=== PATIENT | female | born 1970 | race Caucasian/White ===

== ENCOUNTER → 2023-11-02 | Outpatient (CLI) | payer OTHER ==
--- NOTE | 2023-11-04 14:52 | MM ---
Reason for Exam: Screening (asymptomatic). Last mammogram was performed 1 year(s) and 5 month(s) ago. Patient History: Menarche at age 10. First Full-Term at age 26. Postmenopausal. Risk Values: Julieta 5 year model risk: 1.3%. NCI Lifetime model risk: 9.1%. Prior Study Comparison: 03/13/2020 Bilateral Screening Mammogram, [facility]. 06/18/2022 Bilateral Screening Mammogram, [facility]. Tissue Density: The breasts are heterogeneously dense, which may obscure small masses. Findings: Analyzed By CAD. There is no suspicious group of microcalcifications or new suspicious mass in either breast. Overall Assessment: Benign, BI-RAD 2 Management: Screening Mammogram of both breasts in 1 year. . Patient should continue monthly self-breast exams. A clinical breast exam by your physician is recommended on an annual basis. This exam should not preclude additional follow-up of suspicious palpable abnormalities. Note on Julieta scores and lifetime risk: 1. A Julieta score greater than 3% is considered moderate risk. If this is the case, consider specialist referral to assess eligibility for a risk reducing agent. 2. If overall lifetime risk for the development of breast cancer is 20% or higher, the patient may qualify for future screening with alternating mammogram and breast MRI. Electronically signed and approved by: Harish Aguiar M.D. Radiologis
== END | disposition home or self-care (01) ==
LOC: RADMAMWWP 16:27
PROVIDERS: ATTEND Family Medicine
DX: Z12.31 Encounter for screening mammogram for malignant neoplasm of breast (principal); Z78.0 Asymptomatic menopausal state
CPT/HCPCS: 77063; 77067

== ENCOUNTER 2023-12-02 07:01 | Day surgery (SDC) | payer OTHER ==
[2023-11-30 14:32] VITALS: BMI 24.3
[~2023-12-02 07:01] MED LIST: LACTATED RINGERS 1,000 ML IV SCH; ONDANSETRON 4 MG/2 ML VIAL IVP PRN
[2023-12-02] MEDS: LACTATED RINGERS 1,000 ML IV ONE (07:30)
[2023-12-02] MEDS: OXYMETAZOLINE 0.05% NASL SPRAY 1 SPRAY BOTTLE EA NOSTRIL PRN (07:30)
[2023-12-02 07:37] LABS: Glucose,Whole Blood 164 mg/dL (70-110)
[2023-12-02] MEDS: FAMOTIDINE 20 MG/2 ML VIAL IV PRN (07:42)
[2023-12-02] MEDS: DEXAMETHASONE SOD PHOSPHATE 4 MG/ML 1 ML VIAL IV ONE (07:42)
[2023-12-02] MEDS: ONDANSETRON 4 MG/2 ML VIAL IVP ONE (07:43)
[2023-12-02 08:17] VITALS: TEMP 96.9
[2023-12-02] MEDS: LIDOCAINE 1%-EPI 1:100,000 20 ML VIAL SUBMUCOSAL ONE (08:18)
[2023-12-02] MEDS ORDERED: fentaNYL (PF) 50 MCG/ML 2 ML AMP ONE (08:23)
[2023-12-02] MEDS ORDERED: LIDOCAINE 1% INJ 10MG/ML (20 ML MDV) ONE (08:23)
[2023-12-02] MEDS ORDERED: DEXAMETHASONE SOD PHOSPHATE 10 MG/ML 1 ML VIAL ONE (08:23)
[2023-12-02] MEDS ORDERED: SUCCINYLCHOLINE CHLORIDE 200 MG/10 ML VIAL IV ONE (08:23)
[2023-12-02] MEDS ORDERED: MIDAZOLAM 2 MG/2 ML VIAL ONE (08:23)
[2023-12-02] MEDS ORDERED: PROPOFOL 10 MG/ML 20 ML VIAL IV ONE (08:23)
--- NOTE | 2023-12-02 09:34 | P.OP ---
Date of Procedure: 12/02/23 Preoperative Diagnosis: deviated nasal septum Inferior turbinate hypertrophy Chronic sinusitis Postoperative Diagnosis: same Procedure(s) Performed: septoplasty Outfractured and submucous resection inferior turbinates Bilateral endoscopic sinus surgery including bilateral maxillary antrostomy with removal of tissue from maxillary sinuses, bilateral anterior and posterior ethmoidectomy including frontal sinus exploration and removal of tissue from sinuses and left kendra bullectomy Anesthesia: MANJITA Surgeon: Graham Wheeler Estimated Blood Loss (ml): 10 Pathology: other (nasal septal bone and cartilage and sinus contents) Condition: stable Disposition: PACU Indications for Procedure: this is a 53-year-old white female whose had difficulties with chronic and recurrent sinusitis as well as chronic nasal airway obstruction bilaterally Operative Findings: nasal. The left anteriorly to the right posteriorly, inferior turbinate hypertrophy bilateral, mild mucosal thickening in the ethmoid sinuses diffusely as well as frontal sinuses, maxillary ostia were obstructed bilaterally with small polyps in the maxillary sinuses removed ,left kendra bullosa cell Description of Procedure: The patient was brought into the operative suite and placed in a supine position. The patient underwent induction of general anesthesia with oral endotracheal intubation without difficulty. The patient was prepped and draped in the usual aseptic fashion with the orbits in the operating field for monitoring to the case and the computed tomography scan was on the computer screen for review throughout the case. 1% lidocaine with 1 :100,000 epinephrine was infused submucosally into both sides of the nasal septum as well as the lateral nasal wall and anterior tips of the middle turbinates. While this was taking vasoconstrictive effect the inferior turbinates were infractured with Linden elevator and partial submucous resection of the inferior turbinates was performed with a portion of the submucosal soft tissue and the inferior turbinate bone removed with Coblation device. The inferior turbinates were then outfractured with the Linden elevator. A left hemitransfixion incision was then made with the mucoperichondrial and mucoperiosteal flap on the left elevated. The bony cartilaginous junction was disarticulated and the mucoperiosteal flap on the right was elevated. Bony nasal septal deformities were removed with Neil forceps and an inferior cartilaginous strip was removed leaving a full 1.5 cm caudal strut. Checking intranasally this corrected the nasoseptal deformities and the hemitransfixion incision was closed with a running 4-0 chromic suture. Full 0 endoscopic examination is performed bilaterally. Beginning on the left, the middle turbinate was medialized. the lateral one half was removed with the microdebrider loss completed including the kendra bullectomy. The maxillary ostium was located with a ballpoint probe and an infundibulotomy was performed followed by uncinectomy. The maxillary antrostomy was enlarged at the expense of the anterior and posterior fontanelle taking care anteriorly not to injure the lacrimal bone. The maxillary sinus was evaluated with 30 and 70 endoscope .[Abnormal appearing tissue was removed from the maxillary sinus- small polyps]. Anterior and posterior ethmoidectomy were then performed from anterior to posterior to the level of the skull base. The roof of the anterior ethmoid air cells were then cleaned from posterior to anterior using up-biting Blakesley forceps. utilizing a 30 and 70 endoscope a frontal sinusotomy was performed with curved suction, ballpoint probe and giraffe forceps The frontal sinus was then explored with 30 endoscope.[Abnormal tissue was removed from the frontal sinuswith giraffe forceps]. Attention was then turned to the right where the procedures were followed as they had been on the leftincluding medialization middle turbinate infundibulotomy uncinectomy uncinectomy antrostomy with removal of tissue from maxillary sinus, anterior posterior ethmoidectomy and frontal sinusotomy with exploration and removal of tissue from the frontal sinus [Nasopore nasal dressing was placed in the middle meatus bilaterally under direct visualization]. Bilateral Gomez airway splints coated with bacitracin ointment were placed and sutured transseptally with a 4-0 nylon suture. The patient was suctioned in oral gastric fashion and was allowed to emerge from general anesthesia having tolerated procedure well and was extubated in the operating suite and transferred to the postoperative recovery area in satisfactory condition.
[2023-12-02] MEDS: HYDROmorphone 0.5 MG/0.5 ML SYRINGE IVP PRN (09:47)
[2023-12-02 10:28] LABS: Glucose,Whole Blood 207 mg/dL (70-110)
[2023-12-02] MEDS ORDERED: HYDROcodone/APAP 5-325MG 1 EACH TAB ONE (11:27)
[2023-12-02] MEDS: HYDROcodone/APAP 5-325MG 1 EACH TAB PO ONE (11:27)
[2023-12-02 12:09] VITALS: BP 166/73; PULSE 89; RESP 16
== END 2023-12-02 11:40 | disposition home or self-care (01) ==
LOC: OR 07:01
PROVIDERS: ATTEND Otolaryngology
DX: J34.2 Deviated nasal septum (principal); J34.3 Hypertrophy of nasal turbinates; J32.9 Chronic sinusitis, unspecified; E78.5 Hyperlipidemia, unspecified; E11.9 Type 2 diabetes mellitus without complications; F17.200 Nicotine dependence, unspecified, uncomplicated; Z79.899 Other long term (current) drug therapy; Z88.6 Allergy status to analgesic agent; Z88.8 Allergy status to other drugs, medicaments and biological substances; Z88.5 Allergy status to narcotic agent
CPT/HCPCS: 88305; 88300; 30520; 31267; 31259; 31253; 31240; J2250; J0330; J1100 ×2; J2405; J2001; J3010; J3490; J2704; J1170

== ENCOUNTER → 2024-12-08 | Outpatient (CLI) | payer OTHER ==
--- NOTE | 2024-12-08 09:52 | MM ---
Reason for Exam: Screening (asymptomatic). Last mammogram was performed 1 year(s) and 1 month(s) ago. Patient History: Menarche at age 10. First Full-Term at age 26. Postmenopausal. Risk Values: Julieta 5 year model risk: 1.4%. NCI Lifetime model risk: 8.9%. Prior Study Comparison: 03/13/2020 Bilateral Screening Mammogram, [facility]. 06/18/2022 Bilateral Screening Mammogram, [facility]. 11/02/2023 Bilateral MG 3D screening mammo w/cad, [facility]. Tissue Density: The breasts are heterogeneously dense, which may obscure small masses. Findings: Analyzed By CAD. A few small benign-appearing round calcifications bilaterally are redemonstrated. There is worsening 12 mm focal asymmetry in the middle to posterior depth outer aspect right breast. Possible developing obscured mass. Overall Assessment: Incomplete: need additional imaging evaluation, BI-RAD 0 Management: Diagnostic Mammogram of the right breast. Advised return for spot 3-D and 3-D true views right breast. Patient should continue monthly self-breast exams. A clinical breast exam by your physician is recommended on an annual basis. This exam should not preclude additional follow-up of suspicious palpable abnormalities. Note on Julieta scores and lifetime risk: 1. A Julieta score greater than 3% is considered moderate risk. If this is the case, consider specialist referral to assess eligibility for a risk reducing agent. 2. If overall lifetime risk for the development of breast cancer is 20% or higher, the patient may qualify for future screening with alternating mammogram and breast MRI. [facility], , 12/08/2024 9:48 AM. Electronically signed and approved by: Lalo Taylor M.D.
== END | disposition home or self-care (01) ==
LOC: RADMAMWWP 12-07 07:39
PROVIDERS: ATTEND Family Medicine
DX: Z12.31 Encounter for screening mammogram for malignant neoplasm of breast (principal); R92.333 Mammographic heterogeneous density, bilateral breasts; Z78.0 Asymptomatic menopausal state
CPT/HCPCS: 77067

== ENCOUNTER → 2024-12-09 | Outpatient (CLI) | payer OTHER ==
--- NOTE | 2024-12-09 13:19 | MM ---
Reason for Exam: Additional evaluation requested from abnormal screening. Last screening mammogram was performed less than 1 month ago. Patient History: Menarche at age 10. First Full-Term at age 26. Postmenopausal. Risk Values: Julieta 5 year model risk: 1.4%. NCI Lifetime model risk: 8.9%. Prior Study Comparison: 03/13/2020 Bilateral Screening Mammogram, [facility]. 06/18/2022 Bilateral Screening Mammogram, [facility]. 11/02/2023 Bilateral MG 3D screening mammo w/cad, [facility]. 12/08/2024 Bilateral MG screening mammo w CAD, [facility]. Tissue Density: Right: The breasts are heterogeneously dense, which may obscure small masses. Findings: Analyzed By CAD. An approximately 11 mm focal asymmetry persists middle depth roughly 5 cm distance from nipple outer aspect right breast on additional views. Overall Assessment: Incomplete: need additional imaging evaluation, BI-RAD 0 Management: Diagnostic Breast Ultrasound of the right breast. . Results were given to the patient verbally at the time of exam. Patient should continue monthly self-breast exams. A clinical breast exam by your physician is recommended on an annual basis. This exam should not preclude additional follow-up of suspicious palpable abnormalities. Note on Julieta scores and lifetime risk: 1. A Julieta score greater than 3% is considered moderate risk. If this is the case, consider specialist referral to assess eligibility for a risk reducing agent. 2. If overall lifetime risk for the development of breast cancer is 20% or higher, the patient may qualify for future screening with alternating mammogram and breast MRI. [facility], , 12/09/2024 1:16 PM. Electronically signed and approved by: Lalo Taylor M.D.
--- NOTE | 2024-12-09 13:44 | USB ---
Patient History: Menarche at age 10. First Full-Term at age 26. Postmenopausal. Risk Values: Julieta 5 year model risk: 1.4%. NCI Lifetime model risk: 8.9%. Technique: Method: Targeted. Prior Study Comparison: 06/18/2022 Bilateral Screening Mammogram, [facility]. 11/02/2023 Bilateral MG 3D screening mammo w/cad, [facility]. 12/08/2024 Bilateral MG screening mammo w CAD, [facility]. Findings: The lateral section of the breast of the right breast, the axilla of the right breast and the retroareolar of the right breast were scanned. Targeted ultrasound. At 9:00 position 6 cm distance from nipple there is a 1.1 x 0.8 x 0.7 cm hypoechoic mass or lesion with angular margins and slight posterior shadowing without internal vascularity. A prominent benign-appearing lymph node in the right axilla is noted. Overall Assessment: Suspicious, BI-RAD 4 Management: Ultrasound Core Biopsy of the right breast. Tissue sampling is recommended. A clinical breast exam by your physician is recommended on an annual basis and results should be correlated with mammographic findings. This exam should not preclude additional follow-up of suspicious palpable abnormalities. Results were given to the patient verbally at the time of exam. [facility], , 12/09/2024 1:40 PM. Electronically signed and approved by: aLlo Taylor M.D.
== END | disposition home or self-care (01) ==
LOC: RADMAMWWP 12:43
PROVIDERS: ATTEND Family Medicine
DX: R92.8 Other abnormal and inconclusive findings on diagnostic imaging of breast (principal); R92.331 Mammographic heterogeneous density, right breast; Z78.0 Asymptomatic menopausal state
CPT/HCPCS: 77061; 77065

== ENCOUNTER → 2025-01-06 | Outpatient (CLI) | payer OTHER ==
[2025-01-06 13:12] VITALS: BP 100/67; PULSE 92; RESP 16; TEMP 97.9
--- NOTE | 2025-01-06 13:30 | P.PN ---
Subjective Progress Note Date: 01/06/25 Principal diagnosis: right breast invasive ductal cancer [id number]- History of Present Illness Consult date: 01-06-25 Reason for Consult: Right breast invasive ductal carcinoma Requesting physician: Emre Mcintyre History of present illness: Vani is a 54-year-old female seen in consultation for Dr. Whitfield and nc regarding a right breast biopsy invasive ductal carcinoma. She underwent a bilateral screening mammogram on 12-07-2024. This revealed a 12 mm focal asymmetry in the middle to posterior depth outer aspect right breast. She then underwent a right breast ultrasound on 12-09-2024. This revealed a 1.1 x 0.8 cm lesion in the 9 o'clock position of the right breast. This was considered BI- RADS 4 and ultrasound core biopsy was recommended. This was performed on 12 13 24. Pathology revealed invasive ductal carcinoma grade 1. This was ER/MI positive HER2 negative. The case was reviewed adn discussed with Dr. Mcpherson from radiology. This was found on a routine mammogram. She does not feel any lumps masses or nodules of concern in either breast. She is not complaining of any nipple discharge or skin changes. She has never had any surgery on her breast. We are awaiting genetic testing results, however at this point she would not change her plan for a lumpectomy no matter what the results are. Caffeine: 3 coffee/day diet coke nicotine: 1 PPD/30 years chocolate: twice a week hormones: used at menopause for 6 months, not now for 5 years BCP: in her 20's Family History: unknown adopted Hormonal History: menarche: 10 M1 ectopic 2 age at : 27, breat fed: no menopause: 44 Surgical History: sinus surgery ankle sugery tonsil and adenoids Medical History: HTN high cholesterol DM Social History: nicotine: as above alcohol: twice a month, wine or beer drugs: Marijuana Gummies occasional Review of Systems - Constitutional Reports sweats, Denies fever, Denies weight loss - EENT Eyes: denies blurred vision Ears: deny: decreased hearing, tinnitus Ears, nose, mouth and throat: Denies dysphagia - Breasts bilateral: as per HPI - Cardiovascular Denies chest pain, Denies shortness of breath - Respiratory Denies cough - Gastrointestinal Reports as per HPI, Reports diarrhea - Genitourinary Genitourinary: Denies dysuria, Denies hematuria Menstruation: Reports postmenopausal - Musculoskeletal Reports as per HPI - Integumentary Denies rash, Denies unusual bruising - Neurological Reports headaches, Denies syncope - Psychiatric Reports as per HPI, Reports anxiety - Endocrine Reports as per HPI - Hematologic/Lymphatic Denies easy bleeding, Denies easy bruising Hematologic/Lymphatic Comment(s): RBC large follows with DR. Salomon - Allergic/Immunologic Reports seasonal allergies Past Medical History Past Medical History: Diabetes Mellitus, GERD/Reflux, Hyperlipidemia, Hypertension Additional Past Medical History / Comment(s): "Received 4 stitches in right thumb over the weekend". Varicose vein. History of Any Multi-Drug Resistant Organisms: None Reported Past Surgical History: Adenoidectomy, Ear Surgery, Orthopedic Surgery, Tonsillectomy Additional Past Surgical History / Comment(s): Bilateral ankle surgery, EGD. Thalmus surgery Past Anesthesia/Blood Transfusion Reactions: No Reported Reaction Additional Past Anesthesia/Blood Transfusion Reaction / Comm: Adopted, no family hx. Past Psychological History: Anxiety Smoking Status: Current every day smoker Past Alcohol Use History: Occasional Additional Past Alcohol Use History / Comment(s): Smoking since 2000, 1ppd. Past Drug Use History: None Reported - Past Family History Mother Additional Family Medical History / Comment(s): Patient adopted - family hx unknown. Medications and Allergies Home Medications Medication Instructions Recorded Confirmed Type Rosuvastatin Calcium [Crestor] 20 mg PO DAILY 10/17/21 12/22/24 History ALPRAZolam [Xanax] 0.25 mg PO TID PRN 11/30/23 12/22/24 History Dapagliflozin Propanediol [Farxiga] 10 mg PO DAILY 11/30/23 12/22/24 History Semaglutide [Rybelsus] 3 mg PO DAILY 11/30/23 12/22/24 History hydroCHLOROthiazide 25 mg PO DAILY 11/30/23 12/22/24 History Allergies Allergy/AdvReac Type Severity Reaction Status Date / Time aspirin Allergy Swelling Verified 12/22/24 14:49 ibuprofen Allergy Swelling Verified 12/22/24 14:49 ketorolac [From Toradol] Allergy Swelling Verified 12/22/24 14:49 Objective - Constitutional General appearance: Present: cooperative - EENT Eyes: Present: EOMI ENT: Present: hearing grossly normal - Neck Neck: Present: normal ROM - Respiratory Respiratory: bilateral: CTA - Cardiovascular Rhythm: regular Heart sounds: normal: S1, S2 - Integumentary Integumentary: Present: normal turgor - Musculoskeletal Musculoskeletal: Present: gait normal - Psychiatric Psychiatric: Present: A&O x's 3, appropriate affect, intact judgment & insight - Additional findings Additional findings: Breast Exam: BRA: 36B inspection: Bilateral grade 2 ptosis Palpation: Right breast: Ecchymosis at biopsy site resolved, no dominant masses or nodules of concern, dense breast Right axilla: No adenopathy of concern Left breast: Multi positional exam no dominant masses or nodules of concern, dense breast Left axilla: No adenopathy of concern Assessment and Plan Assessment: Results Bilateral mammogram, right breast ultrasound and right breast diagnostic mammogram personally reviewed and discussed with Dr. Mcpherson from radiology Pathology results reviewed Assessment and Plan Assessment: Impression: Stage I invasive ductal carcinoma right breast Hypertension Diabetes High cholesterol Plan: Presentation of case at tumor board/ done on 12-27-24; recommendation referral to medical oncology, Oncotype on the specimen, she is okay for surgery at this time and further treatment recommendation will be determined after the surgery. Genetic testing pending. At this time her decision for a lumpectomy would not be changed based on the genetic testing results. Right breast needle localization lumpectomy, localization utilizing methylene blue for the lumpectomy site of the right breast, possible oncoplastic tissue transfer, right sentinel node injection, right sentinel node biopsy, possible right axillary node dissection Risk and benefits of the procedure were discussed with the patient. Risk include but are not limited to bleeding, infection, reaction to the anesthetic. We have discussed the risks related with sentinel node biopsy. These again in clude bleeding, infection, reaction to the anesthetic there is a risk of some lymphedema or winged scapula. There is also a risk of some decrease sensation to the inner arm. She understands this and wishes to proceed. We have also discussed the fact that the genetic testing is not presently back and she has decided that no matter what the results are of this that at the present time she would like to have a lumpectomy and sentinel node biopsy and will be followed closely if the genetic testing results are positive. Consent: I have discussed the risks, benefits and alternative therapies for the above-mentioned procedure and for both sedation/analgesia as well as necessary blood product administration, if indicated, as they pertain to this patient. The patient has indicated understanding and acceptance of the risks and procedures discussed. Functional assessment: Arm abduction past Preoperative education material given to the patient CC: Dr. Mcintyre
== END ==
LOC: WWCWWP 12:24
PROVIDERS: ATTEND Surgery
DX: Z12.31 Encounter for screening mammogram for malignant neoplasm of breast (principal); D05.11 Intraductal carcinoma in situ of right breast; E11.9 Type 2 diabetes mellitus without complications; E78.00 Pure hypercholesterolemia, unspecified; I10 Essential (primary) hypertension; F17.210 Nicotine dependence, cigarettes, uncomplicated; F12.90 Cannabis use, unspecified, uncomplicated; Z88.6 Allergy status to analgesic agent

== ENCOUNTER 2025-01-25 06:26 | Day surgery (SDC) | payer OTHER ==
[2025-01-25] MEDS ORDERED: HYDROmorphone 0.5 MG/0.5 ML SYRINGE IVP PRN (07:00)
[2025-01-25] MEDS ORDERED: METHYLENE BLUE 50 MG, DEXTROSE 5% IN WATER 50 ML MISCELLANE ONE (07:00)
[2025-01-25] MEDS ORDERED: MIDAZOLAM 2 MG/2 ML VIAL IV PRN (07:00)
[2025-01-25] MEDS: IV FLUID CONTINUATION 1,000 ML IV ONE ×2 (07:01→12:48)
[2025-01-25] MEDS: ACETAMINOPHEN TAB 500 MG TAB PO PRN (07:12)
[2025-01-25] MEDS: ALPRAZolam 0.5 MG TAB PO STA (07:12)
[2025-01-25] MEDS: SCOPOLAMINE 1 MG/72 HR PATCH TRANSDERM ONE (07:13)
[2025-01-25] MEDS: LIDOCAINE 1% (10MG/ML) FOR IV START INTRADERMA PRN (07:14)
[2025-01-25] MEDS: LACTATED RINGERS 1,000 ML IV SCH (07:14)
[2025-01-25 07:25] LABS: Glucose,Whole Blood 136 mg/dL (70-110)
[2025-01-25] MEDS: LIDOCAINE 1% INJ 10MG/ML (20 ML MDV) SQ ONE (07:54)
[2025-01-25] MEDS: SODIUM BICARB 8.4% 50 ML VIAL (1 MEQ/ML) MISCELLANE ONE (07:54)
[2025-01-25] MEDS: METHYLENE BLUE 50 MG/10 ML VIAL MISCELLANE ONE (08:02)
[2025-01-25] MEDS: HEPARIN SODIUM,PORCINE 5,000 UNIT/ML 1 ML VIAL SQ PRN (08:31)
[2025-01-25] MEDS: DEXAMETHASONE SOD PHOSPHATE 4 MG/ML 1 ML VIAL IV ONE (08:31)
[2025-01-25] MEDS: ONDANSETRON 4 MG/2 ML VIAL IVP ONE (08:31)
[2025-01-25] MEDS ORDERED: LIDOCAINE 4% LTA KIT (4 ML) TOPICAL ONE (09:52)
[2025-01-25] MEDS ORDERED: PROPOFOL 10 MG/ML 20 ML VIAL IV ONE (09:52)
[2025-01-25] MEDS ORDERED: GLYCOPYRROLATE 0.2 MG/ML 2 ML VIAL ONE (09:52)
[2025-01-25] MEDS ORDERED: LIDOCAINE 1% INJ 10MG/ML (20 ML MDV) ONE (09:52)
[2025-01-25] MEDS ORDERED: MIDAZOLAM 2 MG/2 ML VIAL ONE (09:52)
[2025-01-25] MEDS ORDERED: fentaNYL (PF) 50 MCG/ML 2 ML AMP ONE (09:52)
[2025-01-25] MEDS ORDERED: PHENYLEPHRINE-0.9% NACL SYG 1,000 MCG/10 ML SYRINGE ONE (09:52)
[2025-01-25] MEDS ORDERED: HYDROmorphone (PF) 1 MG/ML ONE (09:52)
[2025-01-25] MEDS ORDERED: SUCCINYLCHOLINE CHLORIDE 200 MG/10 ML VIAL IV ONE (09:52)
[2025-01-25] MEDS ORDERED: diphenhydrAMINE 50 MG/ML 1 ML VIAL ONE (09:52)
[2025-01-25] MEDS ORDERED: ROCURONIUM 10 MG/ML (5 ML VIAL) IV ONE (09:52)
--- NOTE | 2025-01-25 09:53 | P.NAPBC ---
NAPBC Queries - NAPBC Queries Was patient's case review presented at [facility] tumor board? If no, comment.: Yes Was patient's pathology reviewed at [facility]? If no, comment.: Yes Was breast conservation surgery offered? If no, comment.: Yes Was sentinel node biopsy offered? If no, comment.: Yes Was diagnosis confirmed by percutaneous core biopsy? If no, comment.: Yes Is patient mastectomy patient?: No Was a preop referral to reconstructive surgeon offered?: No Clinical Stage: stage 1 right breast IDC [id number]
[2025-01-25] MEDS: LIDOCAINE 1% INJ 10MG/ML (30 ML VIAL-PF) SQ ONE ×2 (10:29→11:30)
[2025-01-25] MEDS: LACTATED RINGERS 1,000 ML IV ONE (11:34)
[2025-01-25 11:48] VITALS: TEMP 97
--- NOTE | 2025-01-25 11:52 | P.BCAON ---
Date of Procedure: 01/25/25 Preoperative Diagnosis: Right breast invasive ductal carcinoma Postoperative Diagnosis: Same Procedure(s) Performed: Right breast needle localization lumpectomy, sentinel node biopsy, oncoplastic tissue transfer 40 cm Anesthesia: SHAYNA Surgeon: Miryam Menon Estimated Blood Loss (ml): 10 IV fluids (ml): 700 Pathology: other (Axillary and breast tissue) Condition: stable Disposition: same day Indications for Procedure: Right breast biopsy-proven invasive ductal carcinoma Operative Findings: Dense breast tissue Description of Procedure: The patient is a 54-year-old female diagnosed with invasive ductal carcinoma of the right breast. Preoperatively she was seen in the radiology department. Needle localization of the area of concern was performed as well as injection of methylene blue dye at the site. Additionally radiotracer was injected in the periareolar area for sentinel node biopsy. The patient was brought to the operative suite. Using the neoprobe the area of the axilla was interrogated. Radiotracer was noted to be present in the axilla. The right breast and axilla were then prepped and draped in a sterile fashion. The area of the axilla was approached initially. Using the neoprobe the area of greatest radioactivity was identified. An incision was made and carried down to the site. An enlarged lymph node was identified at that site. It was grasped using an Allis clamp. This was resected using the harmonic scalpel. Several lymph nodes appeared to be present at that site. They were taken out in an ex vivo count at 10 seconds was 404. The background 10-second count was 8. The wound was irrigated. It was evaluated for hemostasis. After we are sure that hemostasis was attained the deep tissues were closed using 3-0 Vicryl suture. The skin was closed using 4-0 Monocryl. Following this the area of the breast was approached. An incision was made and carried down to the shaft of the needle. Surrounding tissue was excised. The cavity was 5 x 3 cm. The specimen was painted for orientation. Radiograph of the specimen revealed the area of concern had been removed including the clip. Following this a superior pedicle 5 x 3 cm was formed and an inferior pedicle 5 x 2 cm was formed. Titanium clips were placed in the cavity. Posterior dissection was onto the pectoralis muscle. Anterior dissection was immediately under the area of the skin. The superior and inferior pedicles were brought together and secured using 3-0 Vicryl suture. The subcutaneous tissue was closed using 3-0 Vicryl suture. The skin was closed using 4-0 Monocryl. All instrument and sponge counts were correct at the end of the case. The patient tolerated the procedure in stable condition. 10 cc of 1% lidocaine was used to inject into the areas of the incisions. Surgical glue was placed.
--- NOTE | 2025-01-25 12:11 | NM ---
EXAMINATION TYPE: NM sentinel node injection DATE OF EXAM: 01/25/2025 COMPARISON: NONE CLINICAL INDICATION: Female, 54 years old with history of RIGHT BREAST CA; TECHNIQUE AND FINDINGS: The procedure of sentinel lymph node injection was explained to the patient. The benefits, alternatives, and risks were discussed. An informed consent was then obtained. Overlying skin is cleaned with sterile alcohol. Following this, 511 uCi Tc99m Tilmanocept was inject ed in the upper outer aspect of the right nipple intradermally. The patient tolerated the procedure well without any immediate complication. The patient was kept in the radiology department for short stay after the procedure and then taken to surgery for surgical p rocedure what is presumed intraoperative gamma probe will be used for sentinel lymph node detection. IMPRESSION: Right breast radiotracer injection for sentinel node localization as above. [facility], , 01/25/2025 12:08 PM
[2025-01-25 12:54] VITALS: RESP 16
[2025-01-25 13:05] VITALS: BP 128/75; PULSE 75
--- NOTE | 2025-02-02 10:36 | MM ---
Pathology Description: Approach: Lateral to Medial Needle Type: 7 cm Kopan The procedure of needle localization with wire placement and than surgical excision was explained to the patient. Benefits, alternatives, and risks were discussed. An informed consent was then obtained. The shortest pathway for procedure was chosen. Shortest pathway was a lateral approach. The overlying skin was prepped and draped in usual sterile fashion. Lidocaine buffered with bicarbonate was used as anesthetic into the skin and subcutaneous tissue up to the level of area of concern. A 7 cm Kopans needle was used. It was placed via a lateral approach under mammographic guidance. Subsequent 90 degrees mammogram show the needle to be in satisfactory position relative to the targeted mass. The biopsy clip is noted to be just posterior to the mass. Prior to deploying the wire, 1 mL of methylene blue dye was injected at the mass. At this point, wire was placed and the needle was withdrawn. The wire was fixed to patient's skin. Images were marked for surgeon. The patient tolerated the procedure well without any immediate complication. The patient was kept in the radiology department for short stay after the procedure and then taken to surgery for surgical excision. Targeted mass, a couple adjacent calcifications, and adjacent microclip along with the wire are identified in the specimen mammogram. The patient was kept in hospital for short stay after the procedure and then discharged home in stable condition. Impression: Successful, uncomplicated needle localization with wire placement and surgical excision of biopsy-proven right breast cancer, full pathology results to follow. [facility], , 01/25/2025 12:32 PMThe procedure of needle localization with wire placement and than surgical excision was explained to the patient. Benefits, alternatives, and risks were discussed. An informed consent was then obtained. The shortest pathway for procedure was chosen. Shortest pathway was a lateral approach. The overlying skin was prepped and draped in usual sterile fashion. Lidocaine buffered with bicarbonate was used as anesthetic into the skin and subcutaneous tissue up to the level of area of concern. A 7 cm Kopans needle was used. It was placed via a lateral approach under mammographic guidance. Subsequent 90 degrees mammogram show the needle to be in satisfactory position relative to the targeted mass. The biopsy clip is noted to be just posterior to the mass. Prior to deploying the wire, 1 mL of methylene blue dye was injected at the mass. At this point, wire was placed and the needle was withdrawn. The wire was fixed to patient's skin. Images were marked for surgeon. The patient tolerated the procedure well without any immediate complication. The patient was kept in the radiology department for short stay after the procedure and then taken to surgery for surgical excision. Targeted mass, a couple adjacent calcifications, and adjacent microclip along with the wire are identified in the specimen mammogram. The patient was kept in hospital for short stay after the procedure and then discharged home in stable condition. Impression: Successful, uncomplicated needle localization with wire placement and surgical excision of biopsy-proven right breast cancer, full pathology results to follow. [facility], , 01/25/2025 12:33 PM. Pathology Results: Result: Malignant, Invasive ductal carcinoma. Pathology and radiology were reviewed. Findings are concordant. A. RIGHT BREAST, LUMPECTOMY: Invasive moderately differentiated ductal carcinoma (Grade 2), margins negative for malignancy. See Surgical Pathology Cancer Case Summary. B. SENTINEL LYMPH NODE #1, RIGHT, BIOPSY: Three lymph nodes negative for metastasis. ARTHUR immunostain performed on block B1, B2, B3, B4 and B5 is confirmatory (control appropriate). Overall Assessment: Malignant Management: Diagnostic Mammogram of the right breast in 6 months. Oncologic Management of the right breast. Electronically signed and approved by: Gerardo Gatyan M.D. Radiologist
== END 2025-01-25 13:22 | disposition home or self-care (01) ==
LOC: OR 06:26
PROVIDERS: ATTEND Surgery
DX: C50.911 Malignant neoplasm of unspecified site of right female breast (principal); K21.9 Gastro-esophageal reflux disease without esophagitis; I10 Essential (primary) hypertension; E78.5 Hyperlipidemia, unspecified; F17.200 Nicotine dependence, unspecified, uncomplicated; E11.9 Type 2 diabetes mellitus without complications; F41.9 Anxiety disorder, unspecified; Z88.6 Allergy status to analgesic agent; Z79.899 Other long term (current) drug therapy
CPT/HCPCS: 19301; 38525; 88342; 88307; 76098; 19281; 38792; C1819; A9520; J2250; J0330; J1200; J1644; J0690; J2405; J2003 ×2; J3010; J1171; J2704; Q9968; J2371; J1596

== ENCOUNTER → 2025-02-02 | Outpatient (CLI) | payer OTHER ==
[2025-02-02 09:35] VITALS: BP 106/57; PULSE 82; RESP 16; TEMP 97.6
--- NOTE | 2025-02-02 09:43 | P.BCPO ---
Progress Note - Text Progress Note Date: 02/02/25 Vani is status post right breast lumpectomy and sentinel node biopsy on 01 25 25. Pathology revealed invasive ductal carcinoma grade 2 margins negative, tumor size 1.2 cm. 3 lymph nodes examined all nodes negative for tumor. Examination: Lungs: Clear Heart: Regular rate and rhythm Incision: Clean and dry breast and axilla There is a small suture extruding from the axillary incision which was trimmed Impression: Patient doing well postoperative Plan: Appointment medical oncology Appointment radiation oncology Follow-up here in 4 months, follow-up sooner any questions or concerns Post Op Education - Post Op Education Post Op Education Provided Date: 02/02/25 - Functional Assessment Performed?: Yes (arm abduction passed) Path Report - Was patient given path report? Path Report Date Given: 02/02/25
== END ==
LOC: WWCWWP 09:08
PROVIDERS: ATTEND Surgery
DX: Z48.89 Encounter for other specified surgical aftercare (principal); Z98.890 Other specified postprocedural states; Z88.6 Allergy status to analgesic agent; F12.90 Cannabis use, unspecified, uncomplicated